=== PATIENT | female | born 1980 | race African-American/Black ===

== ENCOUNTER 2024-06-02 09:19 | Emergency (ER) | payer OTHER | END 2024-06-02 11:00 | disposition home or self-care (01) | LOC: VM.ED 09:19 | DX: S05.11XA Contusion of eyeball and orbital tissues, right eye, initial encounter (principal); W01.0XXA Fall on same level from slipping, tripping and stumbling without subsequent striking against object, initial encounter; Z88.8 Allergy status to other drugs, medicaments and biological substances | CPT/HCPCS: 70030; 99283 ==